=== PATIENT | male | born 1980 | race African-American/Black ===

== ENCOUNTER 2016-05-31 14:16 | Emergency (ER) | payer OTHER, MEDICAID ==
[~2016-05-31] VITALS: Ht 180.3 cm; Wt 90.0 kg
[2016-05-31] MEDS ORDERED: ORPHENADRINE INJ 60 MG/2 ML AMP IM ONE (15:45)
[2016-05-31] MEDS ORDERED: KETOROLAC TROMETHAMINE 60 MG/2 ML (IM) VIAL IM ONE (15:45)
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
[2016-05-31 15:50] VITALS: BP 137/91; PULSE 98; RESP 20; TEMP 98.4; O2SAT 98
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
[2016-05-31] MEDS ORDERED: IBUP800T23 PO (16:50)
[2016-05-31] MEDS ORDERED: CYCL1TAB29 PO (16:50)
== END 2016-05-31 17:03 | disposition home or self-care (01) ==
LOC: NEPB 14:16
DX: M62.838 Other muscle spasm (principal); S39.012A Strain of muscle, fascia and tendon of lower back, initial encounter; V49.59XA Passenger injured in collision with other motor vehicles in traffic accident, initial encounter; Y93.89 Activity, other specified; Y92.410 Unspecified street and highway as the place of occurrence of the external cause
CPT/HCPCS: 72110; 96372; 99284; J1885; J2360

== ENCOUNTER 2016-12-26 18:02 | Emergency (ER) | payer MEDICAID ==
[~2016-12-26] VITALS: Ht 180.3 cm; Wt 91.0 kg
[~2016-12-26 18:02] MED LIST: CYCL1TAB29 PO; IBUP800T23 PO
[2016-12-26 18:03] VITALS: BP 171/101; PULSE 104; RESP 18; TEMP 102.2; O2SAT 98
--- NOTE | 2016-12-26 18:09 | PD ---
Physical Exam Date Seen by Provider: Dec 26, 2016 Time Seen by Provider: 18:07 Data Data Last Documented VS Vital Signs Date Time Temp Pulse Resp B/P (MAP) Pulse Ox O2 Delivery O2 Flow Rate FiO2 12/26/16 18:03 102.2 104 18 171/101 (124) 98 Nasal Cannula Orders Orders Ibuprofen (Motrin) (12/26/16 18:15) MDM Supervised Visit with JONE: No Narrative Course 36 YO M with complaint of headache and sore throat times ~36 hours. Patient endorses daughter with similar symptoms. Took a BC powder this afternoon. Vitals reviewed. Tylenol administered. Patient seen in triage, awaiting bed placement. Tiffany Youssef Dec 26, 2016 18:09
[2016-12-26] MEDS ORDERED: IBUPROFEN 800 MG TAB PO ONE (18:15)
== END 2016-12-26 21:00 | disposition left against medical advice (07) ==
LOC: NED 18:02
DX: J02.9 Acute pharyngitis, unspecified (principal); R51 Headache
CPT/HCPCS: 99281